=== PATIENT | male | born 1945 | race Hispanic/Latino ===

== ENCOUNTER 2024-11-05 15:18 | Inpatient (IN) | payer MEDICARE ==
[~2024-11-05] VITALS: Ht 160 cm; Wt 73.7 kg
[2024-11-05 16:02] LABS: BASOPHILS % 0.4 % (0.0-1.0); EOSINOPHILS % 0.4 % (0.0-6.0); HEMOGLOBIN 11.4 g/dL (14.0-18.0); LYMPHOCYTES # (AUTO) 0.2 (1.0-3.2); LYMPHOCYTES % 2.7 % (18.0-39.1); MEAN CORPUSCULAR HEMOGLOBIN 33.6 pg (28-32); MEAN CORPUSCULAR HGB CONC 34.5 g/dL (31-35); MEAN CORPUSCULAR VOLUME 97.3 fL (81-99); MONOCYTES # (AUTO) 0.1 (0.2-0.8); MONOCYTES % 1.1 % (4.4-11.3); NEUTROPHILS # (AUTO) 5.3 (2.1-6.9); NEUTROPHILS % 94.9 % (38.7-80.0); PLATELET COUNT 138 x10e3/uL (140-360); RED BLOOD COUNT 3.39 x10e6/uL (4.3-5.7); RED CELL DISTRIBUTION WIDTH 12.2 % (11.7-14.4); WHITE BLOOD COUNT 5.59 x10e3/uL (4.8-10.8)
[2024-11-05] MEDS ORDERED: BENICAR20 MG PO (16:02)
[2024-11-05] MEDS ORDERED: TEGRETOL XR200 MG PO (16:02)
[2024-11-05 16:05] LABS: INR 1.14; PROTHROMBIN TIME 15.3 seconds (11.9-14.5)
[2024-11-05 16:06] LABS: PARTIAL THROMBOPLASTIN TIME 27.5 seconds (23.8-35.5)
[2024-11-05 16:13] LABS: ALBUMIN 3.5 g/dL (3.5-5.0); ALBUMIN/GLOBULIN RATIO 1.3 (0.8-2.0); ANION GAP 17.1 mmol/L (8-16); BILIRUBIN,TOTAL 0.3 mg/dL (0.2-1.2); CALCIUM 8.2 mg/dL (8.4-10.2); CREATININE, SERUM 0.84 mg/dL (0.72-1.25); POTASSIUM 4.1 mmol/L (3.5-5.1); TOTAL PROTEIN 6.1 g/dL (6.5-8.1)
[2024-11-05 16:20] LABS: TROPONIN I 0.018 ng/mL (0-0.300)
[2024-11-05 16:24] LABS: CORONAVIRUS COVID-19 AG NEGATIVE (NEGATIVE); INFLUENZA A AG NEGATIVE (NEGATIVE); INFLUENZA B AG NEGATIVE (NEGATIVE)
[2024-11-05] MEDS: SODIUM CHLORIDE 0.9% 1000ML 1,910 ML IV SCH (16:27)
[2024-11-05] MEDS: ACETAMINOPHEN 1000 MG/100 ML IV ONE (16:27)
[2024-11-05] MEDS: IBUPROFEN 600 MG TAB PO STA (16:27)
[2024-11-05 17:41] LABS: BILIRUBIN,URINE NEGATIVE (NEGATIVE); CLARITY,URINE CLEAR (CLEAR); COLOR,URINE YELLOW (YELLOW); GLUCOSE, URINE NEGATIVE (NEGATIVE); KETONES,URINE NEGATIVE (NEGATIVE); LEUKOCYTE ESTERASE ,URINE NEGATIVE (NEGATIVE); NITRITE,URINE NEGATIVE (NEGATIVE); PH,URINE 6 (5 - 7); PROTEIN,URINE DIPSTICK NEGATIVE (NEGATIVE); URINE UROBILINOGEN 0.2 mg/dL (0.2 - 1)
[2024-11-05 17:49] LABS: RBC,URINE 0-5 /HPF (0-5); WBC,URINE (MAN) 0-5 /HPF (0-5)
[2024-11-05] MEDS ORDERED: IOPAMIDOL 370 MG/ML 100 ML INFUS..BTL INJ ONE (18:27)
[2024-11-05 18:36] VITALS: TEMP 98.4
[2024-11-05] MEDS: SODIUM CHLORIDE 0.9% 1000ML 1,000 ML IV STA (18:36)
[2024-11-05] MEDS ORDERED: NEOSTIGMINE 1 MG/ML 10ML VIAL ONE (19:38)
[2024-11-05] MEDS ORDERED: EPHEDRINE SULFATE INJ 50 MG/ML VIAL ONE (19:38)
[2024-11-05] MEDS ORDERED: SODIUM CHLORIDE 0.9% 1000ML 1,000 ML ONE (19:46)
[2024-11-05] MEDS: SODIUM CHLORIDE 0.9% 1000ML 1,000 ML IV ONE (20:21)
[2024-11-05] MEDS: SODIUM CHLORIDE 0.9% 1000ML 2,000 ML IV STA (21:42)
[2024-11-05] MEDS ORDERED: Morphine 4mg INJECTION 4 MG/ML INJ IV PRN (23:00)
[2024-11-05] MEDS ORDERED: ONDANSETRON HCL INJ 2MG/ML 2ML 2 MG/ML VIAL IV PRN (23:00)
[2024-11-05] MEDS: NOREPINEPHRINE 8 MG/D5W 250 ML 250 ML IV SCH (23:11)
[2024-11-05 23:15] VITALS: PULSE 67; RESP 15
[2024-11-06] VITALS (85 sets, daily range): BP systolic 89–157; BP diastolic 35–110; PULSE 56–78; RESP 9–23; TEMP 97.7–99; O2SAT 98–100
[2024-11-06] MEDS: SODIUM CHLORIDE 0.9% 1000ML 1,000 ML IV SCH (02:19)
[2024-11-06 06:21] LABS: BASOPHILS % 0.2 % (0.0-1.0); EOSINOPHILS # (AUTO) 0.1 (0.0-0.4); EOSINOPHILS % 0.4 % (0.0-6.0); HEMATOCRIT 30.4 % (38.2-49.6); HEMOGLOBIN 10.3 g/dL (14.0-18.0); LYMPHOCYTES # (AUTO) 1.1 (1.0-3.2); LYMPHOCYTES % 6.6 % (18.0-39.1); MEAN CORPUSCULAR HEMOGLOBIN 33.9 pg (28-32); MEAN CORPUSCULAR HGB CONC 33.9 g/dL (31-35); MONOCYTES # (AUTO) 1.2 (0.2-0.8); NEUTROPHILS # (AUTO) 14.2 (2.1-6.9); NEUTROPHILS % 85.3 % (38.7-80.0); PLATELET COUNT 136 x10e3/uL (140-360); RED BLOOD COUNT 3.04 x10e6/uL (4.3-5.7); RED CELL DISTRIBUTION WIDTH 12.7 % (11.7-14.4); WHITE BLOOD COUNT 16.64 x10e3/uL (4.8-10.8)
[2024-11-06 06:38] LABS: ALBUMIN 2.9 g/dL (3.5-5.0); ALBUMIN/GLOBULIN RATIO 1.4 (0.8-2.0); BILIRUBIN,TOTAL 0.5 mg/dL (0.2-1.2); CREATININE, SERUM 0.82 mg/dL (0.72-1.25)
[2024-11-06 06:40] LABS: TROPONIN I 0.044 ng/mL (0-0.300)
[2024-11-06] MEDS: LACTATED RINGER'S 1,000 ML INJ SCH (07:35)
[2024-11-06] MEDS ORDERED: LORAZEPAM INJ 2 MG/ML VIAL IV PRN (09:15)
[2024-11-06] MEDS ORDERED: ACETAMINOPHEN 1000 MG/100 ML IV PRN ×2 (09:15→14:45)
[2024-11-06] MEDS: CARBAMAZEPINE 200 MG TAB PO SCH (09:24)
[2024-11-06] MEDS ORDERED: LIDOCAINE HCL 2% LOCAL INJ 5 ML SDV VIAL INJ ONE (12:22)
[2024-11-06] MEDS ORDERED: SEVOFLURANE INHAL SOLN 250 ML PEN BTL ONE (12:22)
[2024-11-06] MEDS ORDERED: ROCURONIUM BROMIDE 1 ML IV ONE (12:22)
[2024-11-06] MEDS ORDERED: PROPOFOL IV EMULSION 10 MG/ML 20 ML VIAL ONE (12:22)
[2024-11-06] MEDS ORDERED: FENTANYL CITRATE/PF 100MCG/2 ML INJ ONE (13:28)
[2024-11-06] MEDS ORDERED: ETOMIDATE 40 MG/ 20ML VIAL IV ONE (13:29)
[2024-11-06] MEDS ORDERED: HYDROMORPHONE 2MG/ML ONE (14:02)
[2024-11-06] MEDS ORDERED: DEXAMETHASONE SOD PHOS INJ 4 MG/ML SDV ONE (14:05)
[2024-11-06] MEDS ORDERED: ONDANSETRON HCL INJ 2MG/ML 2ML 2 MG/ML VIAL ONE (14:05)
[2024-11-06] MEDS ORDERED: ESMOLOL HCL 100MG/10ML 10 MG/ML VIAL ONE (14:10)
[2024-11-06] MEDS ORDERED: NEOSTIGMINE 1 MG/ML 10ML VIAL ONE (14:12)
[2024-11-06] MEDS ORDERED: GLYCOPYRROLATE INJ 0.2 MG/ML VIAL ONE (14:12)
[2024-11-06] MEDS ORDERED: ACETAMINOPHEN 1000 MG/100 ML 100 ML IV ONE (14:12)
[2024-11-06] MEDS: FENTANYL CITRATE/PF 100MCG/2 ML INJ ONE (15:40)
[2024-11-06 16:56] LABS: TROPONIN I 0.133 ng/mL (0-0.300)
[2024-11-06] MEDS: HYDROCODONE/APAP 5MG-325MG TAB PO PRN (17:26)
[2024-11-07] VITALS (32 sets, daily range): BP systolic 88–153; BP diastolic 42–85; PULSE 61–85; RESP 7–23; TEMP 97.8–98.8; O2SAT 76–100
[2024-11-07 07:39] LABS: BASOPHILS % 0.3 % (0.0-1.0); EOSINOPHILS # (AUTO) 0.1 (0.0-0.4); EOSINOPHILS % 0.4 % (0.0-6.0); HEMATOCRIT 31.8 % (38.2-49.6); HEMOGLOBIN 10.3 g/dL (14.0-18.0); LYMPHOCYTES # (AUTO) 1.4 (1.0-3.2); LYMPHOCYTES % 11.8 % (18.0-39.1); MEAN CORPUSCULAR HEMOGLOBIN 33.4 pg (28-32); MEAN CORPUSCULAR HGB CONC 32.4 g/dL (31-35); MEAN CORPUSCULAR VOLUME 103.2 fL (81-99); MONOCYTES # (AUTO) 1.1 (0.2-0.8); MONOCYTES % 9.5 % (4.4-11.3); NEUTROPHILS # (AUTO) 8.9 (2.1-6.9); NEUTROPHILS % 77.4 % (38.7-80.0); PLATELET COUNT 130 x10e3/uL (140-360); RED BLOOD COUNT 3.08 x10e6/uL (4.3-5.7); RED CELL DISTRIBUTION WIDTH 12.8 % (11.7-14.4); WHITE BLOOD COUNT 11.53 x10e3/uL (4.8-10.8)
[2024-11-07 08:09] LABS: ALBUMIN 2.9 g/dL (3.5-5.0); ALBUMIN/GLOBULIN RATIO 1.1 (0.8-2.0); ANION GAP 13.2 mmol/L (8-16); BILIRUBIN,TOTAL 0.4 mg/dL (0.2-1.2); CALCIUM 7.3 mg/dL (8.4-10.2); CREATININE, SERUM 0.85 mg/dL (0.72-1.25); POTASSIUM 4.2 mmol/L (3.5-5.1); TOTAL PROTEIN 5.5 g/dL (6.5-8.1)
[2024-11-07] MEDS: HYDROMORPHONE 1MG/1ML INJ IV PRN (12:32)
[2024-11-08] MEDS: SODIUM CHLORIDE 0.9% 250ML 250 ML ONE (00:10)
[2024-11-08 05:38] VITALS: BP 159/74; PULSE 77; RESP 19; TEMP 98.6; O2SAT 98
[2024-11-08 08:00] VITALS: BP 163/73; PULSE 78; RESP 18; TEMP 98.5; O2SAT 97
== END 2024-11-08 10:40 | disposition home or self-care (01) | DRG 853 ==
LOC: ER 15:56 → ERHOLD 22:47 → ICU 23:54 → MED/SURG 11-07 19:02
PROVIDERS: ADMIT Internal Medicine; ATTEND Internal Medicine
PROC: 06HY33Z Insertion of Infusion Device into Lower Vein, Percutaneous Approach (ICD-10-PCS; 2024-11-05)
PROC: 3E0333Z Introduction of Anti-inflammatory into Peripheral Vein, Percutaneous Approach (ICD-10-PCS; 2024-11-05)
PROC: 3E033XZ Introduction of Vasopressor into Peripheral Vein, Percutaneous Approach (ICD-10-PCS; 2024-11-05)
PROC: 0DTJ4ZZ Resection of Appendix, Percutaneous Endoscopic Approach (ICD-10-PCS; principal; 2024-11-06 13:26)
DX: A41.9 Sepsis, unspecified organism (principal); R65.21 Severe sepsis with septic shock; E87.20 Acidosis, unspecified; K35.80 Unspecified acute appendicitis; D64.9 Anemia, unspecified; R53.81 Other malaise; G40.909 Epilepsy, unspecified, not intractable, without status epilepticus; Z11.52 Encounter for screening for COVID-19; Z90.49 Acquired absence of other specified parts of digestive tract
CPT/HCPCS: 36415; 71045; 74177; 80053; 81001; 82550; 83605; 84484; 85025; 85610; 85730; 87040; 87086; 88304; 93005; 94799; 99252; 99284; C1766; J0696; J1100; J1171; J2003; J2405; J2470; J2543; J2710; J7030; J7050; Q9967